=== PATIENT | female | born 1955 | race Caucasian/White ===

== ENCOUNTER 2023-09-02 02:07 | Inpatient (IN) | payer MEDICARE, OTHER, SELFPAY ==
[2023-09-01 19:43] VITALS: BP 177/107
[2023-09-01 20:16] LABS: Urine Albumin Negative (Neg - Trace); Urine Bilirubin Negative (Negative); Urine Character Clear (Clear); Urine Color Yellow; Urine Glucose Negative (Negative); Urine Ketone 3+ (Negative); Urine Leukocyte Negative (Negative); Urine Nitrite Negative (Negative); Urine Occult Blood Negative (Negative); Urine Specific Gravity 1.025 (<1.030); Urine Urobilinogen Negative (Neg - 1+)
[2023-09-01 20:17] LABS: % Basophils 0.4 % (0-2); % Eosinophils 0.9 % (0-6); % Immature Granulocytes 0.2 % (0-0.5); % Lymphocytes 12.6 % (20.5-51.1); % Monocytes 7.5 % (1.7-9.3); % Neutrophils 78.4 % (42.2-75.2); Absolute Eosinophils 0.1 10^3/uL (0-0.7); Absolute Lymphocytes 1.1 10^3/uL (1.2-3.4); Absolute Monocytes 0.7 10^3/uL (0.1-0.6); Hematocrit 38.9 % (37.0-47.0); Hemoglobin 13.4 g/dL (12.0-16.0); Mean Corp Hgb Conc. 34.4 g/dL (33.0-37.0); Mean Platelet Volume 9.6 fL (7.4-10.4); Nucleated Red Blood Cells % 0 %; Platelet Count 306 10^3/uL (130-400); Red Blood Cell Count 4.32 10^6/uL (4.20-5.40); Red Cell Dist. Width 12.9 % (11.5-14.5); White Blood Cell Count 8.9 10^3/uL (4.8-10.8)
[2023-09-01 20:32] LABS: ALT (SGPT) 18 U/L (0-35); AST (SGOT) 31 U/L (14-36); Albumin 4.7 g/dl (3.5-5.0); Alkaline Phosphatase 104 U/L (38-126); Blood Urea Nitrogen 16 mg/dl (7-17); Calcium 9.9 mg/dl (8.4-10.2); Carbon Dioxide 24 mmol/L (22-30); Chloride 102 mmol/L (98-107); Estimated Creatinine Clearance 93 ml/min; Glucose 104 mg/dl (70-99); Sodium 134 mmol/L (135-145); Total Bilirubin 0.8 mg/dl (0.2-1.3); eGFR > 60.00
[2023-09-01 22:11] VITALS: BMI 29.0
[2023-09-01 22:16] VITALS: BP 162/87
--- NOTE | 2023-09-01 22:20 | ED.GENMED ---
History of Present Illness
General
Chief Complaint: Musculo-Skeletal Complaint
Source: patient
Exam Limitations: none
Time Seen by Provider: 09/01/23 22:03
Nursing documentation reviewed up to this point in time: agreed with
Travel History
Have you had any contact with someone who has COVID-19?: No
Do you have any symptoms of coronavirus? Fever > 100 degrees, chills, cough, shortness of breath, sore throat, loss of taste or smell, muscle aches, or headache?: No
History of Present Illness
History of Present Illness:
68-year-old female presents emergency department complaining of right hip pain and inability to walk for the past 3 days. Her pain worsened 2 weeks ago. She has been driving from [place] and [place] for the past 3 days. She saw an
orthopedist in [place] 2 weeks ago and was scheduled for a right hip replacement on October 17, but she could not wait that long and wanted to come to [place]. She had x-rays and was diagnosed with hip dysplasia.
Past History
Past History
ED Past Medical History: HTN, Hypothyroidism and Other (CPAP)
ED Past Surgical History: Orthopedic (Left hemilaminectomy, tendon transfer with osteotomy, right rotator cuff repair, left rotator cuff repair, left total knee replacement, right shoulder replacement) and Other (Deviated septum, stapes removed
right)
Social History
Tobacco: Non-smoker
Alcohol: None
Drug: None
Living: with family
Review of Systems
Review of Systems
Allergies reviewed?: Yes
All Other Systems: Not applicable
Constitutional: Reports no symptoms
EENT: Reports no symptoms
Respiratory: Reports no symptoms
Cardiac: Reports no symptoms
ABD/GI: Reports no symptoms
: Reports no symptoms
Musculoskeletal: Reports joint pain
Skin: Reports no symptoms
Neurological: Reports no symptoms
Endocrine: Reports no symptoms
Hematologic/Lymphatic: Reports no symptoms
Psychiatric: Reports no symptoms
Phy Exam
Physical Exam
Physical Exam:
Physical Exam
General: no apparent distress, not acutely ill
Neck: supple. no meningeal signs. normal posterior pharynx
Heart: s1/s2 regular rate and rhythm, no murmur. equal radial
pulses.
HEENT: Pupils equal round reactive to light, EOMI
Lungs: no acute respiratory distress. clear bilaterally
Abdomen: normal bowel sounds. not tender. no CVAT
Neuro: alert and oriented. no focal neurological deficits cranial nerves II through XII intact
Skin: no rash
Psychiatric: well kept. interactive and cooperative
Extremities: no edema. no calf tenderness. negative homans. good distal pulses, right hip/greater trochanter tender to palpation, unable to lift/flex right hip
Course
Orders/Labs/Results
Orders:
Orders
09/01/23 20:07
Complete Blood Count/With Diff Urgent
Comprehensive Metabolic Panel Urgent
Urinalysis Reflex To Culture Urgent
Date Specimen was Collected: 09/01/23
Time Specimen was Collected: 19:59
09/01/23 22:17
CT Pelvis W/o Iv Contrast Urgent
Comment: no fracture seen on xrays, ?hip dysplasia
Reason For Exam: right hip and pelvic pain, unable to walk
09/01/23 22:18
IV Insert/Care/Rem.- Treatment PRN
Morphine Sulfate 4 mg IV NOW STA
Ondansetron Injectable [Zofran] 4 mg IV NOW STA
09/02/23 00:21
Electrocardiogram (*1) Stat
Reason for Study: PreOp
Electrocardiogram (*1) Urgent
EKG- Treatment ONCE
09/02/23 00:24
Type+Screen Urgent
Abnormal Lab Results
09/01/23
20:07
Absolute Neuts (auto) 7.0 H 10^3/uL
(1.4-6.5)
Absolute Lymphs (auto) 1.1 L 10^3/uL
(1.2-3.4)
Absolute Monos (auto) 0.7 H 10^3/uL
(0.1-0.6)
Neutrophils % 78.4 H %
(42.2-75.2)
Lymphocytes % 12.6 L %
(20.5-51.1)
Sodium 134 L mmol/L
(135-145)
Creatinine 0.4 L mg/dL
(0.6-1.0)
Glucose 104 H mg/dl
(70-99)
Urine Ketones 3+ A
(Negative)
09/01/23 20:07
09/01/23 20:07
Vital Signs
Initial and Last Documented VS:
Initial Vital Signs
Temp Pulse Resp BP Pulse Ox
98.2 F 80 20 177/107 95
09/01/23 19:43 09/01/23 19:43 09/01/23 19:43 09/01/23 19:43 09/01/23 19:43
Last Documented Vital Signs
Temp Pulse Resp BP Pulse Ox
98.2 F 67 15 152/76 93
09/01/23 19:43 09/01/23 23:00 09/01/23 23:00 09/01/23 23:00 09/01/23 23:00
MDM/Problems Addressed
Differential Diagnosis Includes:
Hip dysplasia, hip fracture
MDM/Problems Addressed:
68-year-old female with right subcapital femoral neck fracture. No other injuries. Unclear etiology of fracture. Patient unable to ambulate. Admit to hospitalist, Dr. Wheeler, orthopedics will see in a.m. and plan for likely surgery.
Chronic conditions affecting care: HTN
Acute Exacerbation and/or Progression of Chronic Illness: HTN
*Radiology
Radiology exam reviewed: radiology read reviewed (CT pelvis shows mildly displaced subcapital fracture of right femoral)
*Pulse Oximetry
Patient hypoxic: no
*EKG
Interpreted by ED Provider?: Yes
EKG Intrepretation Date: 09/02/23
EKG Intrepretation Time: 00:49
Interpretation: abnormal
Comparison EKG: no comparison EKG present
Heart Rate: 69
Rate: normal
Rhythm: sinus
[place]: normal axis
Interval: normal interval
QRS Pattern: normal QRS
Ischemia: non-specific ST changes
*Rehabilitation Therapy Aide Interpretation
Rate: Rehabilitation Therapy Aide- N/A
*Critical Care Note
Total Time (30-74mins, 75-104mins- exclusive of procedures): Not Applicable
Patient Management
Social determinants of health affecting care: Living situation
Discussion with other providers: Hospitalist and Application Technician (ortho Dr. Wheeler)
Escalation/DeEscalation of care consider admission/obs:
admit indicated
ED Attending Note
-
Portions of this chart may have been created with voice recognition software.� Occasional wrong word or��sound alike� substitutions may have occurred due to the inherent limitations of voice recognition software.
Discharge Plan
Departure
Patient Disposition: Admit
Date of Disposition: 09/02/23
Time of Disposition: 00:10
Admit to: Med/Surg
Presentation/result/management discussed w/ accepting MD/DO: Hospitalist
Patient with high blood pressure during this ER visit?: Yes
Condition: Good
Discharge Problem:
Closed subcapital fracture of neck of right femur
Prescriptions:
No Action
Air Duo
1 puff inhalation BID
celecoxib 200 MG capsule
200 mg PO DAILY
levothyroxine 50 MCG tablet
50 mcg PO DAILY
aspirin 81 MG tablet,chewable
81 mg PO DAILY
cyclosporine [Restasis] 10 DROPS dropperette
1 drp OPHTHALMIC DAILY
rosuvastatin 10 MG tablet
10 mg PO HS
nebivolol [Bystolic] 5 MG tablet
5 mg PO HS
Cholecalciferol (Vitamin D3) [Vitamin D3] 50 MCG Capsule
100 mcg PO HS
Referrals:
Quinton Glass DO [Family Provider] -
Interventions
Interventions:
*Risk Screen - Suicide Last Done: 09/01/23 19:43
*General Assessment Last Done: 09/01/23 19:43
*Neglect/Abuse Screening Last Done: 09/01/23 19:43
ED- Fall Risk Assessment Last Done: 09/01/23 19:43
*ED COVID-19 Vaccine History Last Done: 09/01/23 19:43
ED-Musculoskeletal Assessment Last Done: 09/01/23 22:11
[2023-09-01] MEDS: ZOFRAN 4 MG IV (22:39)
[2023-09-01] MEDS: MORPHINE SULFATE 4 MG IV (22:41)
[2023-09-01 23:00] VITALS: BP 152/76
[2023-09-02] VITALS (7 sets, daily range): BP systolic 120–159; BP diastolic 66–90; BMI 29.3
[2023-09-02] MEDS: MORPHINE SULFATE 4 MG IV (01:25)
--- NOTE | 2023-09-02 01:26 | HPS.HSE ---
Family Physician
-
Family Physician: Quinton Glass
Chief Complaint
-
Intractable Rt hip pain and ambulatory dysfunction
History of Present Illness
68[address] [facility], HX HTN, Hypothyroidism reports 3 moths HX of Rt Hip pain.
Denied fall or any trauma.
Evaluated by Ortho at [facility] 3 weeks ago , was told Rt Hip dysplasia and suggest ORIF and suggest elective ORIF in November.
Last 3 week s, reports intractable Rt Hip pain with ambulatory dysfunction.
decided to drive up to [facility] from [place] via [facility]. She is a passenger. She could not drive.
Medical History
Past Medical History
Past Medical History: Reports HTN, Hypercholesterolemia and Hypothyroidism
Past Surgical History: Reports Other
Additional Past Surgical History:
Left hemilaminectomy, tendon transfer with osteotomy, right rotator cuff repair, left rotator cuff repair, left total knee replacement, right shoulder replacement) and Other (Deviated septum, stapes removed right)
Social History
Tobacco: Non-smoker
Alcohol: None
Personal:
Living: With Family
Family History
Family History: Not pertinent
Allergies / Home Medications
Allergies reflects when Allergies were last updated in [employer].
Home Medications with original date entered in [employer]
Allergy/Medication List:
Allergies
Allergy/AdvReac Type Severity Reaction Status Date / Time
adhesive Allergy Rash Verified 09/01/23 19:53
adhesive tape Allergy Rash Verified 09/01/23 19:53
animal dander Allergy sinusitis Verified 09/01/23 19:53
latex Allergy red & itchy Verified 09/01/23 19:53
scopolamine Allergy Unknown Verified 09/01/23 19:53
dissolvable sutures Allergy redness,itc Uncoded 09/01/23 19:53
enlson
dust Allergy sinusitis Uncoded 09/01/23 19:53
mold Allergy sinusitis Uncoded 09/01/23 19:53
oak trees Allergy sinusitis Uncoded 09/01/23 19:53
Home Medications
Cholecalciferol (Vitamin D3) [Vitamin D3] 100 mcg PO HS 02/26/21
aspirin 81 mg chewable tablet 81 mg PO DAILY 02/26/21
cyclosporine 0.05 % eye drops in a dropperette (Restasis) 1 drp OPHTHALMIC DAILY 02/26/21
levothyroxine 50 mcg tablet 75 mcg PO DAILY 02/26/21
nebivolol 5 mg tablet (Bystolic) 5 mg PO HS 02/26/21
pravastatin 10 mg tablet 10 mg PO DAILY 09/02/23
Review of Systems
-
Constitutional: Reports No Symptoms
EENT: Reports No Symptoms
Respiratory: Reports No Symptoms
Cardiac: Reports No Symptoms
Abdomen/GI: Reports No Symptoms
: Reports No Symptoms
Musculoskeletal: Reports See HPI
Skin: Reports No Symptoms
Neurological: Reports No Symptoms
Endocrine: Reports No Symptoms
Hematologic/Lymphatic: Reports No Symptoms
Psych: Reports No Symptoms
Physical Exam
Vital Signs
Vital Signs
Temp Pulse Resp BP Pulse Ox
98.2 F 69 17 149/74 95
09/01/23 19:43 09/02/23 01:00 09/02/23 01:00 09/02/23 01:00 09/02/23 01:00
Physical Exam
General: Well Developed, No Apparent Distress and Other
HEENT: NormoCephalic, Anicteric and Moist mucous membranes
Respiratory: Clear and Non Labored Respirations
Cardiac: S1/S2 and Regular Rhythm
Breast: Deferred by me
GI: Soft, Non Tender and Non Distended
Rectal: Deferred by Provider
Genito-urinary: Deferred by me
Musculoskeletal: Other (Rt hip/greater trochanter tender to palpation, unable to lift/flex right hip)
Skin: Warm
Neuro: AO x 3
Psych: Calm and Intact Judgment/Insight
Laboratory Results
-
09/01/23 20:07
09/01/23 20:07
Laboratory Results
Total Bilirubin 0.8 mg/dl (0.2-1.3) 09/01/23 20:07
AST 31 U/L (14-36) 09/01/23 20:07
ALT 18 U/L (0-35) 09/01/23 20:07
Alkaline Phosphatase 104 U/L (38-126) 09/01/23 20:07
Data Reviewed
-
CT Scan: Report Reviewed by me
Medical Tests (Nuc Med, Echo, EKG etc): Report Reviewed by me
Lab Data: Labs Reviewed by me
Impression/Plan
-
Reviewed VS: BP 177/105 otherwise hemodynamically stable
Data
Nl CBC
Na 134
Nl Cr
NEG UA
EKG
NSR
NOS ST T abn
Abn EKG
CT pelvis wo contrast
- Mildly displace subcapital Fx of Rt Femoral neck - acute to subacute
ASSESSMENT & PLAN
Right subcapital femoral neck fracture - acute to sub acute - Denied trauma
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
Recently driving from [place], [place] to [place] for last 3 days
RCRI index Zero points: class risk
- Benefits of Ortho OR outweigh the thr risk
- Medically acceptable to proceed for ortho surgery
- NPO and IVF
- Fx set protocol order
- Ortho consulted
Hypothyroid on LT4 - cont.
Essential HTN on Bystolic
HLD on Rosuvastatin
DVT Px: SCD
Full code
IP [place]
[2023-09-02] MEDS: DILAUDID 0.25 MG IV (03:24)
[2023-09-02] MEDS: TYLENOL PO ×2 (04:00→13:20)
[2023-09-02] MEDS: SYNTHROID 75 MCG PO (06:43)
[2023-09-02] MEDS: TYLENOL 650 MG PO ×3 (09:44→19:54)
[2023-09-02] MEDS: PRAVACHOL 10 MG PO (09:44)
--- NOTE | 2023-09-02 09:58 | CON.ORTHO ---
Documented by User: Hoa Wall PA-C 09/02/23 10:13
Consultation
-
Date/Time Consultation Requested: 09/02/2023
Date/Time Consultation Performed: 09/02/2023
Requesting Provider: Dr. Cisneros
Performing Provider: Hoa Wall PA-C, for Dr. Sg Wheeler
Reason for Consultation: Right hip fracture
Consultation - Orthopedics
History
HPI: This is a 68-year-old female who presented to [facility] emergency department complaining of worsening right hip pain and inability to ambulate. She reports she has been experiencing pain in her right hip going back to [place]. She
denies any fall or injury, but does see a paint roller covermaker due to a history of spinal fusion for scoliosis. She mentioned while she was in [place] that her right hip was bothering her so she was sent for x-rays. Her x-rays were initially
read with no abnormalities, but her paint roller covermaker thought there was evidence of some right hip osteoarthritis. 07/20/2023, she received an ultrasound-guided intra-articular cortisone injection to her right hip. She reports this
initially offered excellent relief of her right hip pain, however, the pain began to return and interfere with her ability to form ADLs. She saw an career transition specialist in [place] who believed they saw evidence of hip dysplasia on her x-rays and
signed her up for an elective right total hip arthroplasty. Due to the recent cortisone injection, they told her they would not be able to proceed with the surgery until the beginning of October. She did not want to wait around until October in [place] to
proceed with the surgery, so decided to drive back to [place]. Over the last 3 days, she reports a significant increase in pain as well as inability to bear weight on her right hip. This prompted her to present to the emergency department where
a CT scan was performed and demonstrated evidence of displaced femoral neck fracture.
Past medical history: significant for hypertension, sleep apnea, and osteoarthritis, scoliosis, hyperlipidemia, asthma.
Past surgical history: Total knee arthroplasty, right total shoulder arthroplasty.
Social history: Denies tobacco use. Lives with family.
Family history: Noncontributory.
Review of systems: All systems reviewed and negative except for those mentioned in HPI.
Allergies / Home Medications
Allergy/AdvReac Type Severity Reaction Status Date / Time
adhesive Allergy Rash Verified 09/01/23 19:53
adhesive tape Allergy Rash Verified 09/01/23 19:53
animal dander Allergy sinusitis Verified 09/01/23 19:53
latex Allergy red & itchy Verified 09/01/23 19:53
scopolamine Allergy Unknown Verified 09/01/23 19:53
dissolvable sutures Allergy redness,itc Uncoded 09/01/23 19:53
nelson
dust Allergy sinusitis Uncoded 09/01/23 19:53
mold Allergy sinusitis Uncoded 09/01/23 19:53
oak trees Allergy sinusitis Uncoded 09/01/23 19:53
Medication Instructions Recorded
Cholecalciferol (Vitamin D3) 100 mcg PO HS 02/26/21
[Vitamin D3]
aspirin 81 mg chewable tablet 81 mg PO DAILY 02/26/21
cyclosporine 0.05 % eye drops in a 1 drp OPHTHALMIC DAILY 02/26/21
dropperette (Restasis)
levothyroxine 50 mcg tablet 75 mcg PO DAILY 02/26/21
nebivolol 5 mg tablet (Bystolic) 5 mg PO HS 02/26/21
pravastatin 10 mg tablet 10 mg PO DAILY 09/02/23
Vital Signs / Lab Results
Temp Pulse Resp BP Pulse Ox
98.2 F 74 16 141/78 99
09/02/23 07:46 09/02/23 07:46 09/02/23 07:46 09/02/23 07:46 09/02/23 07:46
09/01/23 20:07
09/01/23 20:07
Physical exam:
General: Well-developed, well-nourished female in no acute distress at rest. AAOx4.
HEENT: Atraumatic, normocephalic, neck supple.
Lungs: Nonlabored breathing on room air, no audible wheezing.
Heart: Regular rate and rhythm.
Right hip: Mild tenderness to palpation about hip and groin. Range of motion not tested due to known fracture. Able to dorsi and plantarflex the ankle without difficulty. Calf is soft and nontender palpation.
Radiographic studies:
CT scan of the right hip from 09/02/2023 shows evidence of a displaced subcapital femoral neck fracture.
Assessment / Plan
Assessment: Right hip fracture.
Plan: Jannie's right hip CT scan showed evidence of a subacute/acute displaced femoral neck fracture. Due to her inability to ambulate and significant difficulty with activities of daily living, our recommendation at this time would be to
proceed with a right total hip arthroplasty. She did have a cortisone injection into the right hip over the last 6 weeks. We discussed with the patient that this puts her at elevated risk for perioperative infection. We will reach out to our
total hip surgeons to discuss OR availability and timing of a right total hip arthroplasty going forward. The surgery was explained in detail along with the associated risk, benefits, and recovery process. For now, she will need to keep her weight
off of her right hip. Continue medication management for pain relief. All questions were answered and patient was in agreement with treatment recommendations.

Documented by User: Renzo Long MD 09/03/23 09:50
Consultation - Orthopedics
History
HPI: (Patient seen and evaluated by Renzo Long MD) This is a 68-year-old female who presented to [facility] emergency department complaining of worsening right hip pain and inability to ambulate. She reports she has been
experiencing pain in her right hip going back to [place]. She denies any fall or injury, but does see a paint roller covermaker due to a history of spinal fusion for scoliosis. She mentioned while she was in [place] that her right hip was
bothering her so she was sent for x-rays. Her x-rays were initially read with no abnormalities, but her paint roller covermaker thought there was evidence of some right hip osteoarthritis. 07/20/2023, she received an ultrasound-guided
intra-articular cortisone injection to her right hip. She reports this initially offered excellent relief of her right hip pain, however, the pain began to return and interfere with her ability to form ADLs. She saw an career transition specialist in
[place] who believed they saw evidence of hip dysplasia on her x-rays and signed her up for an elective right total hip arthroplasty. Due to the recent cortisone injection, they told her they would not be able to proceed with the surgery until the
beginning of October. She did not want to wait around until October in [place] to proceed with the surgery, so decided to drive back to [place]. Over the last 3 days, she reports a significant increase in pain as well as inability to bear weight on her
right hip. This prompted her to present to the emergency department where a CT scan was performed and demonstrated evidence of displaced femoral neck fracture.
Past medical history: significant for hypertension, sleep apnea, and osteoarthritis, scoliosis, hyperlipidemia, asthma.
Past surgical history: Total knee arthroplasty, right total shoulder arthroplasty.
Social history: Denies tobacco use. Lives with family.
Family history: Noncontributory.
Review of systems: All systems reviewed and negative except for those mentioned in HPI.
Assessment / Plan
Assessment: Right hip fracture.
Plan: Jannie's right hip CT scan showed evidence of a subacute/acute displaced femoral neck fracture. Due to her inability to ambulate and significant difficulty with activities of daily living, our recommendation at this time would be to
proceed with a right total hip arthroplasty. She did have a cortisone injection into the right hip over the last 6 weeks. We discussed with the patient that this puts her at elevated risk for perioperative infection. We will reach out to our
total hip surgeons to discuss OR availability and timing of a right total hip arthroplasty going forward. The surgery was explained in detail along with the associated risk, benefits, and recovery process. For now, she will need to keep her weight
off of her right hip. Continue medication management for pain relief. All questions were answered and patient was in agreement with treatment recommendations.
Addendum:
Patient seen and evaluated by me. Risks, benefits, and possible complications of surgical treatment have been discussed. Patient questions have been answered. Surgical site has been marked. Patient consents to right total hip replacement as well
as a blood transfusion if required during this admission. Her surgery will likely be performed early this week under the direction of myself, Dr. Bowens, or Dr. Chinchilla. Also increased risk of infection (due to recent cortisone injection) as well
as increased risk of instability / dislocation (due to lumbar / sacral / pelvic fusion) discussed with patient. Patient wishes to proceed with surgery.
--- NOTE | 2023-09-02 12:04 | W.PN.HOSP.TC ---
Today's Communication/Plan
-
Monitor vital signs see plan
Pain control
Timing of surgery per orthopedics
Nonbillable note
Assessment / Plan
Assessment / Plan
General: Well Developed, No Distress
HEENT: Anicteric, pink conjunctiva
Respiratory: Clear,no wheezing
Cardiac: S1/S2 and Regular Rhythm
GI: Soft, Non Tender and Non Distended
Musculoskeletal: Other (Rt� hip tender)
Neuro: AO x 3
Psych: Calm
Right subcapital femoral neck fracture - acute to sub acute
Denies any trauma
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
RCRI 0
- Benefits of Ortho OR outweigh the risk
-Per Ortho will likely need right total hip arthroplasty, timing to be decided
- cw regular diet for now
- pain control
- Ortho following
Mild hyponatremia
monitor
History of hypothyroidism
Continue Synthroid
Essential HTN
Bystolic
HLD
Rosuvastatin
DVT Px: SCD; post OP per ortho
Full code
Anticipated Discharge: > 48 hours
Subjective/Interval History
-
Date of Service: September 02, 2023
Denies nausea
Objective Data
-
Vital Signs:
Vital Signs
Temp Pulse Resp BP Pulse Ox
98.2 F 74 16 141/78 99
09/02/23 07:46 09/02/23 07:46 09/02/23 07:46 09/02/23 07:46 09/02/23 07:46
I&O
09/01/23 09/02/23 09/03/23
06:59 06:59 06:59
Output Total 130 / 130
Balance -130 / -130
--- NOTE | 2023-09-02 16:07 | CM ---
Patient seen at bedside. Patient stated that she lives with her in a 2 story home, however the bedroom is on the first floor. Patient has a CPAP and a cane, crutches and a walker. Patient PCP is Dr. Glass and she uses the [facility] [address]
in [place]. Patient pending for surgery and is uncertain when the surgery will occur. Patient plan is to go home with VN supports pending functional assessments after surgery. CM will continue to follow for discharge planning needs.
Plan; home with VN vs SNF pending functional assessments following surgery
[2023-09-02] MEDS: SENOKOT 17.1999999999999993 MG PO (19:54)
[2023-09-02] MEDS: COLACE 100 MG PO (19:54)
[2023-09-02 19:55] LABS: Erythrocyte Sed Rate 34 mm/hour (0-20)
[2023-09-02] MEDS: BYSTOLIC 5 MG PO (21:52)
[2023-09-03] MEDS: TYLENOL PO (00:19)
[2023-09-03] MEDS: SYNTHROID 75 MCG PO (05:12)
[2023-09-03] MEDS: TYLENOL 650 MG PO ×5 (05:12→22:37)
--- NOTE | 2023-09-03 05:16 | PTCARENOTE ---
Pt with minimal urine output throughout shift with purewick. Bladder scanned for 500ml. Pt was assisted to bedside commode voided for large amount. Purewick on hold at this time, pt would prefer ambulating to commode.
[2023-09-03 06:27] LABS: % Basophils 0.4 % (0-2); % Immature Granulocytes 0.2 % (0-0.5); % Lymphocytes 13.8 % (20.5-51.1); % Monocytes 10.2 % (1.7-9.3); % Neutrophils 71.4 % (42.2-75.2); Absolute Eosinophils 0.3 10^3/uL (0-0.7); Absolute Lymphocytes 1.2 10^3/uL (1.2-3.4); Absolute Monocytes 0.9 10^3/uL (0.1-0.6); Hematocrit 37.1 % (37.0-47.0); Hemoglobin 12.6 g/dL (12.0-16.0); Mean Corpuscular Hgb 30.9 pg (27.0-31.0); Mean Corpuscular Volume 90.9 fL (81.0-99.0); Mean Platelet Volume 10.2 fL (7.4-10.4); Nucleated Red Blood Cells % 0 %; Platelet Count 315 10^3/uL (130-400); Red Blood Cell Count 4.08 10^6/uL (4.20-5.40); Red Cell Dist. Width 12.9 % (11.5-14.5); White Blood Cell Count 8.5 10^3/uL (4.8-10.8)
[2023-09-03 06:47] LABS: Blood Urea Nitrogen 29 mg/dl (7-17); Calcium 9.8 mg/dl (8.4-10.2); Carbon Dioxide 29 mmol/L (22-30); Chloride 100 mmol/L (98-107); Estimated Creatinine Clearance 75 ml/min; Glucose 92 mg/dl (70-99); Potassium 4.6 mmol/L (3.5-5.1); Sodium 139 mmol/L (135-145); eGFR > 60.00
[2023-09-03 08:04] VITALS: BP 153/84
[2023-09-03] MEDS: SENOKOT 17.1999999999999993 MG PO ×2 (09:10→22:38)
[2023-09-03] MEDS: COLACE 100 MG PO ×2 (09:10→22:38)
[2023-09-03] MEDS: PRAVACHOL 10 MG PO (09:11)
--- NOTE | 2023-09-03 10:04 | W.PN.UPDATE ---
Update Note
Progress Note Update
68 year old female with acute/subacute right femoral neck fracture.
Dr. Long was present to evaluate the patient today and discuss treatment recommendations going forward.
ESR 34 mm/hr and CRP 47.60
X-rays demonstrate displaced femoral neck fracture.
Patient will require a right total hip arthroplasty going forward.
Procedure was explained in detail, along with associated risks, benefits, and recovery process. Stressed that with her h/o spinal fusion, instability is a big risk for her going forward. This will be addressed both intra-operatively with implant
placement as well as post operatively with following hip precautions and appropriate rehab. She will likely require a general anesthesia 2/2 the spinal fusion as well.
Consent for surgery and blood transfusion signed by patient and placed in chart.
Right hip marked as correct surgical site.
Plan will be to proceed with Right VAISHNAVI under direction of Dr Long, Dr. Bowens, or Dr. Chinchilla as OR availability and timing allows. Will tentatively aim for tomorrow with Dr. Long. NPO order and IV antibiotics and irrigation animal nutritionist to OR.
--- NOTE | 2023-09-03 11:20 | W.PN.HOSP.TC ---
Today's Communication/Plan
-
Monitor vital signs and see plan
Pain control
OR tomorrow
Bladder scan
Assessment / Plan
Assessment / Plan
General: Well Developed, No Distress
HEENT: Anicteric, pink conjunctiva
Respiratory: Clear,no wheezing
Cardiac: S1/S2 and Regular Rhythm
GI: Soft, Non Tender and Non Distended
Musculoskeletal: Other (Rt� hip tender)
Neuro: AO x 3
Psych: Calm
Right subcapital femoral neck fracture - acute to sub acute
Denies any trauma
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
RCRI 0
- Benefits of Ortho OR outweigh the risk
-Per Ortho will likely need right total hip arthroplasty, likely OR tomorrow 09/[address] Long
- cw regular diet for now; NPo past midnight
- pain control
- Ortho following
Mild hyponatremia
Resolved
Urinary retention likely secondary to not been able to ambulate
Bladder scan as needed
History of hypothyroidism
Continue Synthroid
Essential HTN
Bystolic
HLD
Rosuvastatin
DVT Px: SCD; post OP per ortho
Full code
Anticipated Discharge: > 48 hours
Subjective/Interval History
-
Date of Service: September 03, 2023
Does have some pain at time
Objective Data
-
Labs:
Laboratory Results
09/03/23
05:34
WBC 8.5
Hgb 12.6
Hct 37.1
Plt Count 315
Sodium 139
Potassium 4.6
Chloride 100
Carbon Dioxide 29
BUN 29 H
Creatinine 0.6
Glucose 92
Calcium 9.8
Vital Signs:
Vital Signs
Temp Pulse Resp BP Pulse Ox
98.3 F 65 18 153/84 98
09/03/23 08:04 09/03/23 08:04 09/03/23 08:04 09/03/23 08:04 09/03/23 08:04
I&O
09/02/23 09/03/23 09/04/23
06:59 06:59 06:59
Intake Total 1919 / 1919
Output Total 130 / 130 500 / 500
Balance -130 / -130 1420 / 1420
[2023-09-03] MEDS: ROXICODONE 5 MG PO (12:28)
[2023-09-03 16:05] VITALS: BP 150/92
[2023-09-03 22:31] VITALS: BP 144/92
[2023-09-03] MEDS: BYSTOLIC 5 MG PO (22:38)
[2023-09-04] VITALS (10 sets, daily range): BP systolic 114–150; BP diastolic 75–88
[2023-09-04] MEDS: TYLENOL PO ×3 (00:24→16:00)
[2023-09-04 05:05] LABS: % Basophils 0.6 % (0-2); % Eosinophils 3.3 % (0-6); % Immature Granulocytes 0.5 % (0-0.5); % Lymphocytes 14.2 % (20.5-51.1); % Monocytes 9.1 % (1.7-9.3); % Neutrophils 72.3 % (42.2-75.2); Absolute Basophils 0.1 10^3/uL (0-0.2); Absolute Eosinophils 0.3 10^3/uL (0-0.7); Absolute Lymphocytes 1.3 10^3/uL (1.2-3.4); Absolute Monocytes 0.8 10^3/uL (0.1-0.6); Absolute Neutrophils 6.4 10^3/uL (1.4-6.5); Hematocrit 39.1 % (37.0-47.0); Mean Corp Hgb Conc. 33.2 g/dL (33.0-37.0); Mean Corpuscular Hgb 30.7 pg (27.0-31.0); Mean Corpuscular Volume 92.2 fL (81.0-99.0); Mean Platelet Volume 10.1 fL (7.4-10.4); Nucleated Red Blood Cells % 0 %; Platelet Count 301 10^3/uL (130-400); Red Blood Cell Count 4.24 10^6/uL (4.20-5.40); White Blood Cell Count 8.8 10^3/uL (4.8-10.8)
[2023-09-04 05:31] LABS: Blood Urea Nitrogen 25 mg/dl (7-17); Calcium 9.8 mg/dl (8.4-10.2); Carbon Dioxide 29 mmol/L (22-30); Chloride 103 mmol/L (98-107); Estimated Creatinine Clearance 75 ml/min; Glucose 103 mg/dl (70-99); Potassium 4.1 mmol/L (3.5-5.1); Sodium 139 mmol/L (135-145); eGFR > 60.00
[2023-09-04] MEDS: PRAVACHOL 10 MG PO (07:44)
[2023-09-04] MEDS: SYNTHROID 75 MCG PO (07:44)
[2023-09-04] MEDS: TYLENOL 650 MG PO ×3 (07:44→19:48)
[2023-09-04] MEDS: SENOKOT 17.1999999999999993 MG PO (07:44)
[2023-09-04] MEDS: COLACE 100 MG PO ×2 (07:45→19:48)
--- NOTE | 2023-09-04 08:28 | W.PN.UPDATE ---
Update Note
Progress Note Update
68F planned for OR Today pending OR availability; orders and consent completed.
Pt seen this AM, verifies understanding. Will inform pt and update team if unable to go to OR today to resume a diet and post to OR next availability otherwise.
--- NOTE | 2023-09-04 10:49 | W.PN.HOSP.TC ---
Today's Communication/Plan
-
.
Assessment / Plan
Assessment / Plan
General: Well Developed, No Distress
HEENT: Anicteric, pink conjunctiva
Respiratory: Clear,no wheezing
Cardiac: S1/S2 and Regular Rhythm
GI: Soft, Non Tender and Non Distended
Musculoskeletal: Other (Rt� hip tender)
Neuro: AO x 3
Psych: Calm
Right subcapital femoral neck fracture - acute to sub acute
Denies any trauma
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
RCRI 0
- Benefits of Ortho OR outweigh the risk
-Per Ortho will likely need right total hip arthroplasty, likely OR today pending OR availability
- cw regular diet for now; NPo past midnight
- pain control
- Appreciate Ortho help
Mild hyponatremia
Resolved
Urinary retention likely secondary to not been able to ambulate
Bladder scan as needed
History of hypothyroidism
Continue Synthroid
Essential HTN
AM BP 150/78
No chest pain
No sob
No palpitations or headache
Bystolic
HLD
Rosuvastatin
DVT Px: SCD; post OP per ortho, will add SQ heparin if no surgery today
Full code
�Total time spent to see the patient, examine the patient on the floor, review data and lab results, discuss treatment plan with the patient, nursing staff around 55 minutes
Anticipated Discharge: > 48 hours
Subjective/Interval History
-
Date of Service: September 04, 2023
No chest pain , no sob
Objective Data
-
Labs:
Laboratory Results
09/04/23
04:17
WBC 8.8
Hgb 13.0
Hct 39.1
Plt Count 301
Sodium 139
Potassium 4.1
Chloride 103
Carbon Dioxide 29
BUN 25 H
Creatinine 0.6
Glucose 103 H
Calcium 9.8
Vital Signs:
Vital Signs
Temp Pulse Resp BP Pulse Ox
98.1 F 60 18 150/78 99
09/04/23 07:20 09/04/23 07:20 09/04/23 07:20 09/04/23 07:20 09/04/23 07:20
I&O
09/03/23 09/04/23 09/05/23
06:59 06:59 06:59
Intake Total 1920 / 1920 1080 / 1080
Output Total 500 / 500 700 / 700
Balance 1420 / 1420 380 / 380
--- NOTE | 2023-09-04 16:01 | CM ---
For total R hip arthroplasty. Possible surgery today pending OR availability. Will follow for discharge placement.
[2023-09-04] MEDS: DILAUDID 0.25 MG IV ×4 (16:58→17:21)
[2023-09-04] MEDS: ASPIRIN 325 MG PO (17:58)
[2023-09-04] MEDS: NORMOSOL-R 1000 IV (18:00)
--- NOTE | 2023-09-04 18:12 | PTCARENOTE ---
Pt received from PACU s/p R VAISHNAVI. AAOx3. R hip Aquacel CDI. IVF infusing per order. VSS. Pt without complaint at this time.
[2023-09-04] MEDS: BACTROBAN 2% OINTMENT 1 APPLIC NASAL (19:48)
[2023-09-04] MEDS: SENOKOT PO (19:53)
[2023-09-04] MEDS: BYSTOLIC 5 MG PO (21:42)
[2023-09-04] MEDS: ANCEF 5 IV (21:43)
[2023-09-05] VITALS (7 sets, daily range): BP systolic 138–173; BP diastolic 74–94; PULSE 75; O2SAT 99
[2023-09-05] MEDS: TYLENOL PO ×2 (00:46→05:00)
[2023-09-05] MEDS: ANCEF 5 IV (05:15)
[2023-09-05] MEDS: TYLENOL 650 MG PO ×5 (05:22→19:31)
[2023-09-05] MEDS: SYNTHROID 75 MCG PO (05:23)
--- NOTE | 2023-09-05 06:09 | W.PN.ORTHO ---
Today's Communication / Plan
-
68-year-old female postop day #1 from a right total hip arthroplasty performed on 09/04/[address] Long.
- WBAT RLE with use of walker for assistance.
- ASA 325mg once daily x 4 weeks for DVT prophylaxis.
- PT/OT; Posterior Hip Precautions.
- Pain control per primary team.
- Hemoglobin this AM currently pending. Continue to monitor.
- Discharge planning per CM.
- Orthopedic surgery will continue to follow along at this time.
Assessment
.
Distal Motor Intact: Yes
Dressing:
Clean, dry and intact.
Assessment:
Postop day #1 right total hip arthroplasty
Plan
.
Surgery / Date: 09/04/2023; right total hip arthroplasty
DVT Prophylaxis: Aspirin
Activity:
Out of bed.
PT/OT
Discharge Information:
Appreciate CM
Subjective
.
.:
Patient resting comfortably.
Vital Signs and Labs
.
Vital Signs and Labs:
Temp Pulse Resp BP Pulse Ox
98.1 F 61 16 154/82 98
09/05/23 03:00 09/05/23 03:00 09/05/23 03:00 09/05/23 03:00 09/05/23 03:00
Non-invasive Hgb result: 10.5
Physical Exam
-
Physical examination of the right lower extremity, with attention to the right hip reveals Aquacel dressing to be clean, dry, and intact. Thigh is soft and compressible. Calf is soft nontender to palpation. She is able to plantarflex and
dorsiflex her right lower extremity. Sensation is intact to light touch. NVI distally.
--- NOTE | 2023-09-05 06:42 | W.PN.HOSP.TC ---
Today's Communication/Plan
-
.
Assessment / Plan
Assessment / Plan
General: Well Developed, No Distress
HEENT: Anicteric, pink conjunctiva
Respiratory: Clear,no wheezing
Cardiac: S1/S2 and Regular Rhythm
GI: Soft, Non Tender and Non Distended
Musculoskeletal: Other (Rt� hip tender)
Neuro: AO x 3
Psych: Calm
Right subcapital femoral neck fracture - acute to sub acute
Denies any trauma
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
s/p right total hip arthroplasty performed on 09/04/[address] Long.
- cw regular diet for now;
Aspirin 325 mg QD for DVT prophylaxis
- pain control
- Appreciate Ortho help
# Leukocytosis, reactive post op
afebrile
c/w PRN Tylenol
# Mild acute blood loss anemia
no hemodynamic instability
# Mild hyponatremia
Resolved
Urinary retention likely secondary to not been able to ambulate
Bladder scan as needed
History of hypothyroidism
Continue Synthroid
Essential HTN
AM BP 156/88
monitor, add PRN oral hydralazine
No chest pain
No sob
No palpitations or headache
Bystolic HS
HLD
Rosuvastatin
DVT Px: SCD; post OP per ortho, started on high dose aspirin
Full code
�Total time spent to see the patient, examine the patient on the floor, review data and lab results, discuss treatment plan with the patient, nursing staff around 55 minutes
Anticipated Discharge: 24 - 48 hours
Subjective/Interval History
-
Date of Service: September 05, 2023
Pain in the hip is not significant
No chest pain , no sob
Objective Data
-
Labs:
Laboratory Results
09/05/23
06:02
WBC Pending
Hgb Pending
Hct Pending
Plt Count Pending
Sodium Pending
Potassium Pending
Chloride Pending
Carbon Dioxide Pending
BUN Pending
Creatinine Pending
Glucose Pending
Calcium Pending
Vital Signs:
Vital Signs
Temp Pulse Resp BP Pulse Ox
98.1 F 61 16 154/82 98
09/05/23 03:00 09/05/23 03:00 09/05/23 03:00 09/05/23 03:00 09/05/23 03:00
I&O
09/03/23 09/04/23 09/05/23
06:59 06:59 06:59
Intake Total 1920 / 1920 1080 / 1080 1820 / 1820
Output Total 500 / 500 700 / 700 800 / 800
Balance 1420 / 1420 380 / 380 1020 / 1020
[2023-09-05 06:54] LABS: % Basophils 0.2 % (0-2); % Eosinophils 0.2 % (0-6); % Immature Granulocytes 0.8 % (0-0.5); % Monocytes 10.6 % (1.7-9.3); % Neutrophils 78.2 % (42.2-75.2); Absolute Immature Granulocytes 0.1 10^3/uL (0-0.05); Absolute Lymphocytes 1.3 10^3/uL (1.2-3.4); Absolute Monocytes 1.4 10^3/uL (0.1-0.6); Absolute Neutrophils 10.4 10^3/uL (1.4-6.5); Hematocrit 35.2 % (37.0-47.0); Hemoglobin 11.8 g/dL (12.0-16.0); Mean Corp Hgb Conc. 33.5 g/dL (33.0-37.0); Mean Corpuscular Hgb 30.7 pg (27.0-31.0); Mean Corpuscular Volume 91.7 fL (81.0-99.0); Mean Platelet Volume 10.3 fL (7.4-10.4); Nucleated Red Blood Cells % 0 %; Platelet Count 311 10^3/uL (130-400); Red Blood Cell Count 3.84 10^6/uL (4.20-5.40); White Blood Cell Count 13.3 10^3/uL (4.8-10.8)
[2023-09-05 07:17] LABS: Blood Urea Nitrogen 24 mg/dl (7-17); Calcium 9.4 mg/dl (8.4-10.2); Carbon Dioxide 28 mmol/L (22-30); Chloride 100 mmol/L (98-107); Estimated Creatinine Clearance 75 ml/min; Glucose 100 mg/dl (70-99); Sodium 136 mmol/L (135-145); eGFR > 60.00
[2023-09-05] MEDS: PRAVACHOL 10 MG PO (07:35)
[2023-09-05] MEDS: COLACE 100 MG PO ×2 (07:35→19:31)
[2023-09-05] MEDS: SENOKOT 17.1999999999999993 MG PO ×2 (07:35→19:31)
[2023-09-05] MEDS: BACTROBAN 2% OINTMENT 1 APPLIC NASAL ×2 (07:36→19:30)
[2023-09-05] MEDS: ASPIRIN 325 MG PO (07:36)
[2023-09-05] MEDS: CELEBREX 200 MG PO (07:36)
--- NOTE | 2023-09-05 14:13 | CM ---
Patient seen at bedside with , CM reviewed IMM and completed form placed on chart. Patient reviewed [facility] options and referral sent to VN via tt to liaison. Patient also asking for commode and physician, provided script-given to patient
nurse. Patient plan is to remain in [place] and is dressed and in chair. CM updated physician and nurse. CM will continue to follow for discharge planning needs.
Plan; [facility]: [facility]
--- NOTE | 2023-09-05 15:22 | W.DCSUMMARY ---
Discharge Summary
Discharge Data
Date of Admission: 09/02/23
Date of Discharge: 09/06/23
-
Pending Results: No
Hospital Course
68 years old female who presented with right hip pain that was increasing in intensity. She had underlying osteoarthritis. Imaging study showed right subcapital femoral neck fracture. Patient was evaluated by orthopedic doctor. She had total
hip arthroplasty on 09/04/[address] Long. No complications reported. Orthopedic doctor recommended aspirin 325 mg daily for DVT prophylaxis for 4 weeks after surgery. Patient remained hemodynamically stable. She was valuated by physical
therapy and recommended home health services. Patient was discharged in a stable condition.
Physical examination:
General: Well Developed, No Distress
HEENT: Anicteric, pink conjunctiva
Respiratory: Clear,no wheezing
Cardiac: S1/S2 and Regular Rhythm
GI: Soft, Non Tender and Non Distended
Musculoskeletal: Other (Rt�thigh no discharge or bleeding at surgery site).
Neuro: AO x 3, followed commands.
Psych: Calm, pleasant.
Total discharge time spent to see the patient, examine the patient on the floor, review data and lab results, discuss discharge plan with the patient, nursing staff around 65 minutes
Discharge Plan
-
Patient Disposition: Home with Home Care
Discharge Diagnosis/Procedures: Right hip displaced femoral neck fracture status post total hip arthroplasty By Dr. Long on 09/04/23.
Aspirin 325mg once daily x 4 weeks for DVT prophylaxis
Condition: Good
Diet: As tolerated
Additional Diets: Posterior Hip Precautions
Activity: With Walker
Referrals:
Renzo Long MD [Active] - in two weeks
Quinton Glass DO [Family Provider] - in one to two weeks
Prescriptions:
New
aspirin 325 mg Tablet
325 mg PO DAILY Qty: 30 0RF
acetaminophen [Tylenol Extra Strength] 500 mg tablet
1,000 mg PO Q6H PRN (Reason: Pain) Qty: 20 0RF
Continued
levothyroxine 50 MCG tablet
75 mcg PO DAILY
cyclosporine [Restasis] 10 DROPS dropperette
1 drp OPHTHALMIC DAILY
nebivolol [Bystolic] 5 MG tablet
5 mg PO HS
Cholecalciferol (Vitamin D3) [Vitamin D3] 50 MCG Capsule
100 mcg PO HS
pravastatin 10 mg Tablet
10 mg PO DAILY
Discontinued
aspirin 81 MG tablet,chewable
81 mg PO DAILY
Discharge Orders:
Discharge Patient (As Directed); Ordered 09/06/23
Ordered By: Dora Blevins
--- NOTE | 2023-09-05 16:09 | VNURNOTE ---
Home Health Liaison met with patient at 1500 to discuss [facility] nurse/therapy, visits, schedule and homebound status. Patient is agreeable and understands that visits at home will be 2-3 x per week to assess and teach medical management.
[facility] brochure provided with contact information. Patient is aware that [facility] will contact her for start of care in 1-2 days after discharge from .
[facility] referral completed in [facility].
[2023-09-05] MEDS: BYSTOLIC 5 MG PO (21:09)
[2023-09-06] MEDS: TYLENOL PO ×2 (01:01→04:40)
[2023-09-06 05:10] LABS: % Basophils 0.4 % (0-2); % Eosinophils 2.2 % (0-6); % Immature Granulocytes 0.4 % (0-0.5); % Lymphocytes 14.6 % (20.5-51.1); % Monocytes 9.4 % (1.7-9.3); Absolute Eosinophils 0.2 10^3/uL (0-0.7); Absolute Lymphocytes 1.4 10^3/uL (1.2-3.4); Absolute Monocytes 0.9 10^3/uL (0.1-0.6); Absolute Neutrophils 6.8 10^3/uL (1.4-6.5); Hematocrit 32.3 % (37.0-47.0); Hemoglobin 10.7 g/dL (12.0-16.0); Mean Corp Hgb Conc. 33.1 g/dL (33.0-37.0); Mean Corpuscular Hgb 30.3 pg (27.0-31.0); Mean Corpuscular Volume 91.5 fL (81.0-99.0); Mean Platelet Volume 10.2 fL (7.4-10.4); Nucleated Red Blood Cells % 0 %; Platelet Count 281 10^3/uL (130-400); Red Blood Cell Count 3.53 10^6/uL (4.20-5.40); White Blood Cell Count 9.3 10^3/uL (4.8-10.8)
[2023-09-06 05:41] LABS: Blood Urea Nitrogen 20 mg/dl (7-17); Calcium 8.9 mg/dl (8.4-10.2); Carbon Dioxide 26 mmol/L (22-30); Chloride 106 mmol/L (98-107); Estimated Creatinine Clearance 75 ml/min; Glucose 93 mg/dl (70-99); Potassium 4.1 mmol/L (3.5-5.1); Sodium 135 mmol/L (135-145); eGFR > 60.00
[2023-09-06] MEDS: SYNTHROID 75 MCG PO (06:15)
[2023-09-06 07:10] VITALS: BP 158/85
--- NOTE | 2023-09-06 08:01 | W.PN.UPDATE ---
Update Note
Progress Note Update
Ms. Love is POD2 following her right total hip arthroplasty for femur fracture performed by Dr. Long on 09/04/23. She is resting comfortably in bed this morning. She reports her pain is much improved. She has been able to work with physical
therapy without difficulty.
Directed exam of the right lower extremity reveals Aquacel dressing clean, dry and intact. No tenderness to palpation about the hip. Thigh soft and compressible. Calf soft and nontender. Patient able to wiggle toes, plantar and dorsiflex ankle.
Neurovascularly intact distally.
Hgb 10.7 this AM. VSS.
68-year-old female postop day #2 from a right total hip arthroplasty performed on 09/04/[address] Long
- WBAT RLE with use of walker for assistance. PT/OT; Posterior Hip Precautions.
- ASA 325mg once daily x 4 weeks for DVT prophylaxis.
- Pain control per primary team.
- Hemoglobin 10.7 this AM.� Continue to monitor.
- Maintain Aquacel dressing until 7-10 days post-op. Staple removal at 2 weeks post-op. Follow up in the office at 2 weeks post-op for staple removal and repeat evaluation.
- Discharge planning per . It sounds like she will be discharged home today.
- Patient is stable post-operatively from an orthopedic standpoint. Orthopedics will sign off at this time. Please reach out with any additional questions or concerns.
[2023-09-06] MEDS: PRAVACHOL 10 MG PO (08:03)
[2023-09-06] MEDS: CELEBREX 200 MG PO (08:03)
[2023-09-06] MEDS: TYLENOL 650 MG PO (08:04)
[2023-09-06] MEDS: ASPIRIN 325 MG PO (08:05)
[2023-09-06] MEDS: COLACE PO (08:06)
[2023-09-06] MEDS: SENOKOT PO (08:07)
[2023-09-06 09:22] VITALS: BP 161/90
[2023-09-06 09:40] VITALS: BP 161/90; PULSE 77; O2SAT 98
--- NOTE | 2023-09-06 13:25 | CM ---
met with patient who is stable to discharge home with [facility].
== END 2023-09-06 11:11 | disposition home health service (06) | DRG 522 ==
LOC: 2 SOUTH 02:07
PROVIDERS: Emergency Medicine; Internal Medicine; Physician Assistant Medical; Specialist; ADMITTING PHYSICIAN Internal Medicine; ATTENDING PHYSICIAN Internal Medicine; CONSULT PHYSICIAN Orthopaedic Surgery Hand Surgery; EMERGENCY PHYSICIAN Emergency Medicine; FAMILY PHYSICIAN Internal Medicine
PROC: 5A09357 Assistance with Respiratory Ventilation, Less than 24 Consecutive Hours, Continuous Positive Airway Pressure (ICD-10-PCS; 2023-09-03)
PROC: 0SR903A Replacement of Right Hip Joint with Ceramic Synthetic Substitute, Uncemented, Open Approach (ICD-10-PCS; 2023-09-04)
DX: M84.451A Pathological fracture, right femur, initial encounter for fracture (principal); E87.1 Hypo-osmolality and hyponatremia; D62 Acute posthemorrhagic anemia; E03.9 Hypothyroidism, unspecified; I10 Essential (primary) hypertension; E78.00 Pure hypercholesterolemia, unspecified; J30.81 Allergic rhinitis due to animal (cat) (dog) hair and dander; J30.89 Other allergic rhinitis; M41.9 Scoliosis, unspecified; M16.11 Unilateral primary osteoarthritis, right hip; D72.829 Elevated white blood cell count, unspecified; G47.33 Obstructive sleep apnea (adult) (pediatric); R33.9 Retention of urine, unspecified; M51.36 Other intervertebral disc degeneration, lumbar region; J30.1 Allergic rhinitis due to pollen; R26.2 Difficulty in walking, not elsewhere classified; Z91.040 Latex allergy status; Z88.8 Allergy status to other drugs, medicaments and biological substances; Z91.048 Other nonmedicinal substance allergy status; Z79.890 Hormone replacement therapy; Z79.82 Long term (current) use of aspirin; Z79.1 Long term (current) use of non-steroidal anti-inflammatories (NSAID); Z98.1 Arthrodesis status; Z96.611 Presence of right artificial shoulder joint
CPT/HCPCS: 88305; 88311; 72192; 73502; 80048; 80053; 81003; 85025; 85652; 86140; 86850; 86900; 86901; 93005; 96374; 96375; 96376; 97116; 97161; 97166; 97530; 97535; 99285

== ENCOUNTER → 2023-09-25 15:05 | Outpatient (REF) | payer MEDICARE, OTHER, SELFPAY ==
[2023-09-25 15:48] LABS: % Basophils 0.6 % (0-2); % Eosinophils 6.4 % (0-6); % Immature Granulocytes 0.2 % (0-0.5); % Lymphocytes 14.5 % (20.5-51.1); % Neutrophils 70.3 % (42.2-75.2); Absolute Basophils 0.1 10^3/uL (0-0.2); Absolute Eosinophils 0.5 10^3/uL (0-0.7); Absolute Lymphocytes 1.2 10^3/uL (1.2-3.4); Absolute Monocytes 0.7 10^3/uL (0.1-0.6); Absolute Neutrophils 5.7 10^3/uL (1.4-6.5); Hematocrit 37.3 % (37.0-47.0); Hemoglobin 11.8 g/dL (12.0-16.0); Mean Corp Hgb Conc. 31.6 g/dL (33.0-37.0); Mean Corpuscular Hgb 30.4 pg (27.0-31.0); Mean Corpuscular Volume 96.1 fL (81.0-99.0); Mean Platelet Volume 9.7 fL (7.4-10.4); Nucleated Red Blood Cells % 0 %; Platelet Count 367 10^3/uL (130-400); Red Blood Cell Count 3.88 10^6/uL (4.20-5.40); Red Cell Dist. Width 13.6 % (11.5-14.5); White Blood Cell Count 8.2 10^3/uL (4.8-10.8)
[2023-09-25 16:13] LABS: Erythrocyte Sed Rate 37 mm/hour (0-20)
== END ==
LOC: REG 15:05
PROVIDERS: ATTENDING PHYSICIAN Physician Assistant Surgical; FAMILY PHYSICIAN Internal Medicine
DX: Z47.89 Encounter for other orthopedic aftercare (principal); S72.011A Unspecified intracapsular fracture of right femur, initial encounter for closed fracture
CPT/HCPCS: 36415; 85025; 85652; 86140

== ENCOUNTER → 2023-10-02 09:22 | Outpatient (REF) | payer MEDICARE, OTHER, SELFPAY | LOC: HWWDC 09:22 | PROVIDERS: ATTENDING PHYSICIAN Nurse Practitioner Family; FAMILY PHYSICIAN Internal Medicine | DX: Z12.31 Encounter for screening mammogram for malignant neoplasm of breast (principal); M85.80 Other specified disorders of bone density and structure, unspecified site; M81.0 Age-related osteoporosis without current pathological fracture | CPT/HCPCS: 77063; 77067; 77080 ==

== ENCOUNTER → 2023-12-11 12:24 | Outpatient (REF) | payer MEDICARE, OTHER, SELFPAY ==
[2023-12-11 13:04] LABS: % Basophils 0.2 % (0-2); % Eosinophils 1.8 % (0-6); % Immature Granulocytes 0.4 % (0-0.5); % Monocytes 7.7 % (1.7-9.3); % Neutrophils 74.9 % (42.2-75.2); Absolute Eosinophils 0.2 10^3/uL (0-0.7); Absolute Lymphocytes 1.3 10^3/uL (1.2-3.4); Absolute Monocytes 0.7 10^3/uL (0.1-0.6); Absolute Neutrophils 6.3 10^3/uL (1.4-6.5); Hematocrit 41.3 % (37.0-47.0); Hemoglobin 13.7 g/dL (12.0-16.0); Mean Corp Hgb Conc. 33.2 g/dL (33.0-37.0); Mean Corpuscular Volume 87.3 fL (81.0-99.0); Mean Platelet Volume 10.3 fL (7.4-10.4); Nucleated Red Blood Cells % 0 %; Platelet Count 343 10^3/uL (130-400); Red Blood Cell Count 4.73 10^6/uL (4.20-5.40); Red Cell Dist. Width 12.7 % (11.5-14.5); White Blood Cell Count 8.4 10^3/uL (4.8-10.8)
[2023-12-11 13:31] LABS: ALT (SGPT) 24 U/L (0-35); AST (SGOT) 32 U/L (14-36); Albumin 4.5 g/dl (3.5-5.0); Alkaline Phosphatase 87 U/L (38-126); Blood Urea Nitrogen 23 mg/dl (7-17); Calcium 10.5 mg/dl (8.4-10.2); Carbon Dioxide 25 mmol/L (22-30); Chloride 103 mmol/L (98-107); Glucose 95 mg/dl (70-99); Sodium 137 mmol/L (135-145); Total Bilirubin 0.7 mg/dl (0.2-1.3); Total Protein 7.6 g/dl (6.3-8.2); eGFR > 60.00
== END ==
LOC: RAD 12:24
PROVIDERS: ATTENDING PHYSICIAN Nurse Practitioner Family
DX: R05.1 Acute cough (principal); R09.89 Other specified symptoms and signs involving the circulatory and respiratory systems
CPT/HCPCS: 36415; 71046; 80053; 85025

== ENCOUNTER → 2024-04-18 11:03 | Outpatient (REF) | payer MEDICARE, OTHER, SELFPAY | LOC: HWRAD 11:03 | PROVIDERS: ATTENDING PHYSICIAN Internal Medicine | DX: E27.9 Disorder of adrenal gland, unspecified (principal) | CPT/HCPCS: 74177; Q9967 ==

== ENCOUNTER → 2025-01-31 08:23 | Outpatient (REF) | payer MEDICARE, OTHER, SELFPAY | LOC: PAVMRI 08:23 | PROVIDERS: FAMILY PHYSICIAN Internal Medicine | DX: M54.6 Pain in thoracic spine (principal) | CPT/HCPCS: 72146 ==

== ENCOUNTER → 2025-02-24 14:30 | Outpatient (REF) | payer MEDICARE, OTHER, SELFPAY | LOC: HWRAD 14:30 | PROVIDERS: ATTENDING PHYSICIAN Physician Assistant Surgical; FAMILY PHYSICIAN Internal Medicine | DX: M54.6 Pain in thoracic spine (principal); M48.062 Spinal stenosis, lumbar region with neurogenic claudication; M41.86 Other forms of scoliosis, lumbar region; Z98.1 Arthrodesis status | CPT/HCPCS: 72128 ==